=== PATIENT | male | born 1995 | race Two or more races ===

== ENCOUNTER 2019-12-27 09:04 | Emergency (ER) | payer MEDICAID, OTHER ==
[~2019-12-27] VITALS: Ht 172.7 cm; Wt 61.7 kg
[2019-12-27] MEDS ORDERED: SODIUM CHLORIDE 0.9% 1,000 ML IV ONE ×2 (09:30)
[2019-12-27] MEDS ORDERED: ONDANSETRON HCL 4 MG/2 ML VIAL IV ONE (09:30)
[2019-12-27 09:47] LABS: Basophils # (auto) 0 10 ^3/uL (0-0.2); Basophils % (auto) 0.9 % (0.0-2.0); Eosinophils # (auto) 0.2 10 ^3/uL (0-0.8); Eosinophils % (auto) 5.1 % (0.0-7.0); Lymphocytes # (auto) 0.9 10 ^3/uL (0.4-5.4); Lymphocytes % (auto) 22.2 % (10.0-50.0); Mean Corpuscular Hemoglobin 30.8 pg (28.0-32.0); Mean Corpuscular Volume 90.6 fL (80.0-100.0); Monocytes # (auto) 0.7 10 ^3/uL (0-1.3); Monocytes % (auto) 15.8 % (0.0-12.0); Neutrophils # (auto) 2.4 10 ^3/uL (1.6-8.6); Nucleated Red Blood Cells % 0.9 %; Platelet Count (auto) 208 10^3/uL (140-450); Red Blood Cells 5.52 10^6/uL (4.5-5.90); Red Cell Distribution Width 13.3 % (11.8-14.3); White Blood Cell 4.3 10^3/uL (4.4-10.8)
[2019-12-27 10:03] LABS: Albumin 4.7 g/dL (3.4-5.0); Calcium 9.1 mg/dL (8.5-10.1)
[2019-12-27 10:07] LABS: BUN/Creatinine Ratio 12.3; Bilirubin, Total 0.5 mg/dL (0.2-1.0)
[2019-12-27 10:36] LABS: Urine Bacteria NONE SEEN /hpf (None Seen); Urine Blood Negative /uL (Negative); Urine Specific Gravity 1.027 (1.001-1.035); Urine WBC 2 /hpf (0 - 3)
[2019-12-27 10:47] LABS: Alcohol, Urine < 3.0 mg/dL (0-10); Barbiturate Scree,Urine NEGATIVE (NEGATIVE); Benzodiazephine Screen, Urine NEGATIVE (NEGATIVE); Cannabinoid Screen, Urine POSITIVE (NEGATIVE); Cocaine Screen, Urine NEGATIVE (NEGATIVE); Opiate Scree,Urine NEGATIVE (NEGATIVE); Phencyclidine Screen, Urine NEGATIVE (NEGATIVE)
[2019-12-27 10:54] LABS: Amphetamine Screen, Urine NEGATIVE (NEGATIVE)
[2019-12-27 14:12] VITALS: BP 110/59
== END 2019-12-27 14:34 | disposition home or self-care (01) ==
LOC: ER 09:04
DX: N12 Tubulo-interstitial nephritis, not specified as acute or chronic (principal)
CPT/HCPCS: 36415; 71045; 74177; 80053; 80307; 81001; 83690; 85025; 96361; 96374; 99285; J2405

== ENCOUNTER 2019-12-29 12:56 | Emergency (ER) | payer MEDICAID ==
[~2019-12-29] VITALS: Ht 172.7 cm; Wt 61.7 kg
[2019-12-29 13:12] VITALS: BP 120/73
== END 2019-12-29 15:32 | disposition home or self-care (01) ==
LOC: ER 12:56
DX: N39.0 Urinary tract infection, site not specified (principal); N32.89 Other specified disorders of bladder; Z76.0 Encounter for issue of repeat prescription

== ENCOUNTER 2020-01-15 05:15 | Emergency (ER) | payer MEDICAID ==
[~2020-01-15] VITALS: Ht 172.7 cm; Wt 61.7 kg
[2020-01-15 08:00] VITALS: BP 111/68
== END 2020-01-15 09:31 | disposition home or self-care (01) ==
LOC: ER 05:15
DX: R51.9 Headache, unspecified (principal); F41.9 Anxiety disorder, unspecified; F12.10 Cannabis abuse, uncomplicated; Z20.828 Contact with and (suspected) exposure to other viral communicable diseases; Z88.6 Allergy status to analgesic agent
CPT/HCPCS: 36415; 71045; 87426